=== PATIENT | male | born 1985 | race Caucasian/White ===

== ENCOUNTER 2021-01-07 17:54 | Emergency (ER) | payer OTHER ==
[~2021-01-07] VITALS: Ht 177.8 cm; Wt 91.0 kg
--- NOTE | 2021-01-07 18:14 | NUR ---
[id number]
[2021-01-07 18:15] VITALS: BP 150/100
[2021-01-07] MEDS ORDERED: LIDOCAINE-MPF 1%, 5ML INFIL ONE (21:00)
[2021-01-07] MEDS ORDERED: LIDOCAINE-MPF 1%, 5ML ONE ×2 (21:02→21:09)
== END 2021-01-07 23:01 | disposition home or self-care (01) ==
LOC: ED 22:00
DX: S62.635B Displaced fracture of distal phalanx of left ring finger, initial encounter for open fracture (principal); S60.415A Abrasion of left ring finger, initial encounter; W23.0XXA Caught, crushed, jammed, or pinched between moving objects, initial encounter; Y93.89 Activity, other specified; Y92.009 Unspecified place in unspecified non-institutional (private) residence as the place of occurrence of the external cause; Y99.8 Other external cause status
CPT/HCPCS: 11730; 12041; 99284